=== PATIENT | female | born 1955 | race Caucasian/White ===

== ENCOUNTER 2017-07-27 06:52 | Day surgery (SDC) | payer OTHER, SELFPAY ==
[2017-07-27 07:11] VITALS: BP 146/91; PULSE 80; RESP 16; TEMP 36.3; O2SAT 100; BMI 39.5
--- NOTE | 2017-07-27 08:14 | COLBX_PTH ---
PATIENT: ETTA TRUJILLO LOC: EN U#:[id number] AGE/SX: 62/F ROOM: RE07/27/[address]: Dr. Celia Hercules MD : 1955 BED: DIS: 07/27/2017 SPEC #: [id number] RECD: 07/27/17 11:08 STATUS: KIRBY KUSUM #: [id number] CLAUDY: 07/27/17 08:[address]: Celia Hercules DEPT: SURGICAL PATHOLOGY RECD BY: Dominic Cooley ENTERED: 07/27/17 13:10 SP TYPE: COLON BX OTHR DR: ALFONSO Catherine Tissues: A - Ascending colon B - Transverse colon C - Descending colon D - Rectum, NOS Procedures: Surgery Specimen Level IV HEADER OPERATION: Colonoscopy PRE-OP DIAGNOSIS: Family history of colon cancer, screening TISSUE SUBMITTED: A - Polyp at proximal ascending colon, B - Polyp at transverse colon, C - Polyp at distal descending colon, D ? Rectal polyp MICROSCOPIC DIAGNOSIS A. Polyp at proximal ascending colon, biopsy: Fragments of tubular adenoma. B. Polyp at transverse colon, biopsy: Fragments of tubular adenoma. C. Polyp at distal descending colon, biopsy: Fragments of tubular adenoma. D. Rectal polyp, biopsy. Tubular adenoma. SJ:claudio 07/28/17 MICROSCOPIC DESCRIPTION Slides are reviewed. GROSS DESCRIPTION A - Received in fixative is one container labeled with the patient's name and designated polyp at ascending colon. The specimen consists of multiple irregular fragments of light sanz soft tissue that in aggregate measure 0.5 x 0.2 x 0.1 cm. The specimen is totally submitted in one cassette. B - Received in fixative is one container labeled with the patient's name and designated polyp at transverse colon. The specimen consists of two pieces of sanz-pink polyp measuring 0.5 x 0.6 x 0.3 cm. The entire specimen is submitted in one cassette. C - Received in fixative is one container labeled with the patient's name and designated polyp at distal descending colon. The specimen consists of three pieces of sanz-pink polyp measuring 0.4 x 0.4 x 0.2 cm. Also present in the container is a minute piece of sanz-pink soft tissue measuring 0.1 cm in greatest dimension. The entire specimen is submitted in one cassette. D - Received in fixative is one container labeled with the patient's name and designated rectal polyp. The specimen consists of a piece of sanz-pink polyp measuring 0.5 x 0.5 x 0.3 cm. The entire specimen is submitted in one cassette. / ELI:claudio 07/27/17 TC:1 CPT: 11682 x4
[2017-07-27 08:50] VITALS: BP 119/73; BP 146/91; PULSE 65; RESP 16; TEMP 36.4; O2SAT 100
[2017-07-27 08:55] VITALS: BP 103/77; BP 146/91; PULSE 68; RESP 16; O2SAT 100
[2017-07-27 09:00] VITALS: BP 112/78; BP 146/91; PULSE 62; RESP 16; O2SAT 98
[2017-07-27 09:05] VITALS: BP 115/72; BP 146/91; PULSE 62; RESP 16; TEMP 36.8; O2SAT 100
--- NOTE | 2017-07-27 11:06 | OP.PCM_ITS ---
Report of Operation Date of Procedure: 07/27/17 Pre-Operative Diagnosis: Screen for colon cancer, positive family history Brother diagnosed at age 58 Post-Operative Diagnosis: Proximal ascending polyp, transverse colon polyp, distal descending colon polyp, rectal polyp Surgery/Procedure Performed:: Colonoscopy with snare polypectomy Type of Anesthesia:: MAC Anesthesiologist: Arnaldo Robles Specimen's removed: 1. Proximal ascending colon polyp, 2. Transverse colon polyp, 3. Distal descending colon polyp, 4. Rectal polyp Estimated Blood Loss (mL): Minimal Description of Procedure: Procedure: Colonoscopy After reviewing the risks benefits, the patient was deemed in satisfactory condition to undergo procedure. After obtaining informed consent, the scope was passed under direct visualization. Throughout the procedure, the patient's blood pressure pulse and position saturations were monitored continuously anesthesia. The colonoscope was introduced through the anus and advanced to the cecum, identified by the appendiceal orifice, IC valve and transillumination. The colonoscopy was performed without difficulty. The patient tolerated procedure well. Quality of bowel prep was good. Findings: The perianal and digital rectal exam showed some whitish plaque patches from about 3:00-5:00 and 7:00-9:00 on her gluteal cheeks near her anus. Multiple colon polyps removed with the snare polypectomy, these were located in the transverse colon, distal descending colon, rectum these are all about 4-5 mm in size. The proximal ascending polyp was sessile and removed with cold forceps biopsies. Otherwise the colon (entire examined portion) appeared normal. Retroflexed view of the distal rectum and anal verge was normal and showed no anal or rectal abnormalities Impression: 1. Colon polyps in the proximal ascending, transverse, distal descending, rectum. Completely removed and retrieved. 2. Change to the perianal skin with a whitish plaque from 3:00-5:00 & 7:00-9: 00. 2. The distal rectal and anal verge were normal on retroflexed view. Recommendations: Await biopsies Will schedule appt for biopsy of the perianal skin--?lichen sclerosus Repeat colonoscopy in 2-3 years for screening purposes, depending on biopsies as well as the family history. ADDENDUM: repeat colonoscopy in 2 years, pathology of polyps were all tubular adenomas - Complications none
== END 2017-07-27 09:37 | disposition home or self-care (01) ==
LOC: EN 06:54 → AC 06:55
PROVIDERS: Family Provider Physician Assistant; PCP Physician Assistant; Visit Provider Surgery
PROC: 0DJD8ZZ Inspection of Lower Intestinal Tract, Via Natural or Artificial Opening Endoscopic (ICD-10-PCS; CPT 45378; principal; 2017-07-27 07:55)
DX: Z12.11 Encounter for screening for malignant neoplasm of colon (principal); D12.2 Benign neoplasm of ascending colon; D12.4 Benign neoplasm of descending colon; D12.3 Benign neoplasm of transverse colon; D12.8 Benign neoplasm of rectum; Z80.0 Family history of malignant neoplasm of digestive organs; I10 Essential (primary) hypertension; J45.909 Unspecified asthma, uncomplicated; Z86.718 Personal history of other venous thrombosis and embolism; F41.9 Anxiety disorder, unspecified; Z79.82 Long term (current) use of aspirin; Z79.899 Other long term (current) drug therapy; K21.9 Gastro-esophageal reflux disease without esophagitis; K59.09 Other constipation; E78.00 Pure hypercholesterolemia, unspecified
CPT/HCPCS: 45385; 88305; J7120

== ENCOUNTER → 2017-08-21 17:09 | Outpatient (CLI) | payer OTHER, SELFPAY ==
--- NOTE | 2017-08-21 09:55 | TISS_PTH ---
PATIENT: ETTA TRUJILLO LOC: [facility] U#:[id number] AGE/SX: 70/F ROOM: RE08/21/[address]: Dr. Celia Hercules MD : 1955 BED: DIS: SPEC #: [id number] RECD: 08/21/17 17:02 STATUS: KIRBY KUSUM #: [id number] CLAUDY: 08/21/17 09:[address]: Celia Hercules DEPT: SURGICAL PATHOLOGY RECD BY: Dominic Cooley ENTERED: 08/24/17 09:53 SP TYPE: Tissue Bx LON DR: ALFONSO Catherine Tissues: Perianal tissue Procedures: Surgery Specimen Level IV HEADER OPERATION: Punch biopsy, perianal area PRE-OP DIAGNOSIS: Perianal skin lesion TISSUE SUBMITTED: Perianal tissue MICROSCOPIC DIAGNOSIS Perianal tissue, punch biopsy: Consistent with lichen sclerosus. Chronic inflammation and hyperkeratosis. Negative for malignancy. SJ:claudio 4/17/18 MICROSCOPIC DESCRIPTION Slides are reviewed. GROSS DESCRIPTION Received in fixative is one container labeled with the patient's name and designated punch biopsy, perianal lesion. The specimen consists of two irregular fragments of light sanz-white soft tissue that in aggregate measure 1 x 0.5 x 0.1 cm. The specimen is totally submitted in one cassette. / AM:claudio 08/24/17 TC:5 CPT: 62196
== END ==
PROVIDERS: Family Provider Physician Assistant; PCP Physician Assistant; Visit Provider Surgery
DX: L98.9 Disorder of the skin and subcutaneous tissue, unspecified (principal)
CPT/HCPCS: 88305

== ENCOUNTER 2023-07-09 13:06 | Observation (INO) | payer OTHER, SELFPAY ==
[2023-07-09] VITALS (16 sets, daily range): BP systolic 100–166; BP diastolic 46–119; PULSE 66–92; RESP 14–98; TEMP 36–37.4; O2SAT 94–100; BMI 45.6
--- OUTSIDE RECORDS SUMMARY | 2023-07-09 07:16 | XMS RPT_ITS | CCD ---
Author Name Unknown Address [address] [place] [address] Organization [facility] Care Team Providers Care Worship Leader Name Role Phone Shannan Soler PA-C Unavailable Shannan Soler PA-C Unavailable Neurology Provider Unavailable Unavailable Physical Therapy Provider Unavailable Unavai nguyễn General Surgery Provider Unavailable Unavail able Aileen KEN, Anneliese Cunningham Unavailable Karie Sutton PA-C Unavailable Cal KEN, Chilango Ge Unavailable Cortes RESEARCH AND DEVELOPMENT CHEMIST, Lianne Cunningham Unavailable Unavailable Mu KEN, Benny Londono Unavailable PANEL WIRER-C, Glynn Vazquez Unavailable Rio KOTHARI, Christal Gill Unavailable Unavailable [place]augh RESEARCH AND DEVELOPMENT CHEMIST, Sarina K Unavailable Unavai lable Stephanie RESEARCH AND DEVELOPMENT CHEMIST, Anneliese Anderson Unavailable Unavailab dakota Cole RESEARCH AND DEVELOPMENT CHEMIST, Lesia Figueroa Unavailable Unavailab dakota Hood MA, Lidia Unavailable Unavailable Uptain CNM, Crystal K Unavailable Jerman RESEARCH AND DEVELOPMENT CHEMIST, Lidia Unavailable Unavailable Mary RESEARCH AND DEVELOPMENT CHEMIST, Tamie Unavailable Zaugg RESEARCH AND DEVELOPMENT CHEMIST, Marichuy Unavailable Unavailable Wengeredmond RESEARCH AND DEVELOPMENT CHEMIST, Kaylyn Unavailable Unavailabl e Adonis RESEARCH AND DEVELOPMENT CHEMIST, Gordy Unavailable Unavailable Cammie RESEARCH AND DEVELOPMENT CHEMIST, Tegan Unavailable Unavailable Kimmie KOTHARI, Ines Londono Unavailable Unavaila ble Morgan RESEARCH AND DEVELOPMENT CHEMIST, Nancy Unavailable Unavailable Unavailable Unavailable SHANNAN SOLER Referring Unavailable FRANC HERRERA MD Admitting Unavailable FRANC HERRERA MD Primary Care Unavailable FRANC HERRERA MD Attending Unavailable SHANNAN SOLER Consulting Unavailable PROVIDER, UNKNOWN Consulting Unavailable FRANC HERRERA MD Admitting Unavailable FRANC HERRERA MD Primary Care Unavailable FRANC HERRERA MD Attending Unavailable SHANNAN SOLER Consulting Unavailable PROVIDER, UNKNOWN Consulting Unavailable Allergies Allergy Classification Reported Allergen(s) Allergy Type Date of Onset Reaction(s) Facility (4 sources) Demerol *ANALGESICS - OPIOID* Nausea [facility]; [facility] (1 source) Meperidine Drug Allergy [facility] Repository Medications Current Medications Medication Drug Class(es) Dates Sig (Normalized) Sig (Original) [id number] 200 actuat albuterol 0.09 mg/actuat metered dose inhaler (4 sources) beta2-Adrenergic Agonist Start: 01-13-2023 take 2 puff(s) by inhalation every four hours as needed for cough Ventolin HFA 90 mcg/actuation aerosol inhaler ; 2 (two) puff every four hours, as needed for cough/wheeze for 0 days Quantity: 1 {Each} Refills: 5 Ordered: 13-Jan-2023 XAVIER Soler Start: 13-Jan-2023 Comments: Medication taken as needed. Completed/Discontinued Medications Medication Drug Class(es) Dates Sig (Normalized) Sig (Original) amoxicillin 875 mg / clavulanate 125 mg oral tablet (8 sources) Penicillin-class Antibacterial Start: 11-19-2022 End: 11-29-2022 amoxicillin 875 mg-potassium clavulanate 125 mg tablet ; 1 (one) Tablet two times daily for 10 days Quantity: 20 {Tablet} Refills: 0 Ordered: 19-Nov-2022 XAVIER Soler Start: 19-Nov-2022 End: 29-Nov-2022 Status: Inactive Problems Active Problems Problem Classification Problem Date Documented Date Episodic/Chronic Acute and unspecified renal failure (1 source) Acute kidney failure, unspecified; Translations: [Acute kidney failure, unspecified] Onset: 04-21-2023 Episodic Acute bronchitis (8 sources) Acute bronchitis 07-19-2015 Episodic Acute posthemorrhagic anemia (1 source) Acute posthemorrhagic anemia; Translations: [Acute posthemorrhagic anemia] Onset: 04-21-2023 Episodic Administrative/social admission (20 sources) Patient encounter status; Translations: [Dietary counseling and surveillance] 09-06-2015 Episodic Anxiety disorders (20 sources) Mixed anxiety and depressive disorder; Translations: [Other specified anxiety disorders] 03-25-2023 Chronic Asthma (20 sources) Exacerbation of asthma; Translations: [Unspecified asthma with (acute) exacerbation] Onset: 04-21-2023 03-25-2023 Chronic Past or Other Problems Problem Classification Problem Date Documented Da te Episodic/Chronic Unclassified (4 sources) Well adult female - The patient feels well with minor complaints (Sick last week-sinus, V/D. Pt recovering). The patient has a balanced diet. The patient exercises 3 - 4 times per week. The patient sleeps 8 hours per night. 03-25-2023 Unclassified (4 sources) Cold Symptoms - Symptoms include hoarseness, productive cough and wheezing. The onset was 2 week(s) ago. The symptoms occur constantly. The patient describes this as moderate in severity and worsening. Current treatment includes non-prescription cold medication (Mucinex) and allergy medications (Zyrtec, benadryl). The patient has been exposed to an individual with an upper respiratory infection ( with bronchitis). Note for Upper respiratory infection : Thought was improving until 2 nights ago.Not much facial pain today but has had intermittently - worse yesterday.Using albuterol inhaler. 11-19-2022 Unclassified (4 sources) Lichen Sclerosus - patient was seen in office on 02/12/21. Rash diagnosed as Lichen Sclerosus. Was started on Clobetasol Propionate 0.05%. Rash has been much better than it was, but still having burning/itching at times. 03-19-2021 Unclassified (4 sources) concern - States she has a skin condition they diagnosed when she had her hysterectomy. States its very itchy, raw red areas, white patches. Has been using A&D ointment. States hurts when she urinates from urine touching skin. Has been prescribed Triamcinolone in the past. Has had this outbreak for at least a month. States it has never been this bad in the past. 02-12-2021 Unclassified (4 sources) UTI - Symptoms include dysuria, urinary frequency, urinary urgency and abdominal pain. The pain is located in the suprapubic area. There is no radiation. The patient describes the pain as aching. Onset was gradual 2 day(s) ago. There is no known event that preceded symptom onset. The symptoms occur constantly. The patient describes this as moderate in severity and worsening. Note for UTI : Pt also has diarrhea.Had COVID over Stem. Has had some intermittent mid to right sided chest pain at rest since before having COVID. Mom with AR at age 60-70. No associated symptoms. Only lasts for a few minutes. 06-04-2020 Unclassified (4 sources) Well adult female - The patient feels well with no complaints, has good energy level and is sleeping well. The patient has a balanced diet and takes no supplemental vitamins & iron. The patient does not exercise. The patient sleeps 8 hours per night. Note for Well adult female : No concerns today. 02-08-2020 Unclassified (4 sources) lesion removal - Patient is here to have a lesion removed It is on her lower right arm. Is 4-5mm. States it itches. Not sure how long it has been there. 03-09-2019 Unclassified (4 sources) Well Adult, female - The patient feels well with minor complaints, has decreased energy level and is sleeping poorly (because CPAP needs to be replaced - needs script for supplies). The patient has a balanced diet and takes supplemental vitamins. The patient does not exercise. The patient sleeps 4 hours per night. 07-15-2018 Unclassified (4 sources) Well adult female - The patient feels well with minor complaints (started with cold sx again yesterday - this is a trigger for her asthma; started using symbicort again; using albuterol inhaler every 4 hours), has good energy level (depends on the day) and is sleeping well. The first day of the last menstrual period was : (age 39). The patient has a balanced diet and takes supplemental vitamins. The patient does not exercise. The patient sleeps 6 hours per night. Note for Well adult female : Feels she has battled anxiety since she was a young girl. Has trouble sleeping at times. No panic attacks but fearful to drive. Doing something out of her ordinary routine (like jury duty) causes panic. Winter months are worse; admits to some depression too. 04-23-2017 Unclassified (2 sources) Transition into care - The patient is transitioning into care from an emergency room (03/09/2017 [facility]) and a summary of care was reviewed. 03-23-2017 Unclassified (2 sources) [ADDITIONAL REASON] Cold Symptoms - Symptoms include nasal congestion, runny nose, ear pain, sore throat, productive cough, wheezing, fever, chills, general malaise and headache. The onset was gradual 4 day(s) ago. The symptoms occur constantly. The patient describes this as moderate in severity and unchanged. Current treatment includes non-prescription cold medication. The patient has been exposed to an individual with similar symptoms. Medical history includes seasonal allergies, asthma and tonsillectomy, but patient denies history of recurrent sinusitis, recurrent strep pharyngitis or recurrent ear infections. Note for Upper respiratory infection : Used albuterol inhaler every 2-3 hours yesterday. Isn't as bad today. Has advair at home (almost out) but did use it and noticed improvement. 03-23-2017 Unclassified (4 sources) Cold Symptoms - Symptoms include nasal congestion, runny nose, sore throat, productive cough (chest tight), wheezing, fever and headache, but do not include ear pain. The onset was gradual 5 day(s) ago. The symptoms occur constantly. The patient describes this as moderate in severity and worsening. Current treatment includes a short-acting beta agonist (every 4 hours), NSAIDs and salt water garlges. Medical history includes seasonal allergies, asthma and tonsillectomy, but patient denies history of recurrent sinusitis, recurrent strep pharyngitis or recurrent ear infections. Note for Upper respiratory infection : Head symptoms are better, now just in chest. 09-05-2016 Unclassified (4 sources) Tongue pain - Patient complains of a painful tongue x 5 days. Pain started off intermittently, but is now constant and worse. Patient describes pain as burning. She is unable to eat or drink very much due to symptoms. Patient has recently been on an antibiotic. Not diabetic. Afebrile, no sore throat. Does have dental bridges that she wears - painful to wear these. Has been gargling without improvement. 06-18-2016 Unclassified (4 sources) Cold Symptoms - Symptoms include sore throat (post nasal drainage), hoarseness, productive cough (worse during the night and in the mornings. Has slight tightness of her chest. ), wheezing, general malaise, headache (head pressure/congestion) and facial pain, but do not include nasal congestion, runny nose, ear pain (Has a twinge that goes up to her ears at times), fever or chills. The onset was sudden 5 day(s) ago. The symptoms occur constantly. The patient describes this as moderate in severity and unchanged. Current treatment includes a decongestant nasal spray, acetaminophen, home remedies and Benadryl. Risk factors do not include smoking. The patient has been exposed to an individual with an upper respiratory infection (granddaughter was sick about 1 week ago). Medical history includes seasonal allergies (this past spring did have), recurrent sinusitis, asthma and tonsillectomy, but patient denies history of recurrent strep pharyngitis or recurrent ear infections. Note for Upper respiratory infection : Reviewed by JARROD. 05-29-2016 Unclassified (4 sources) Cold Symptoms - Symptoms include nasal congestion, runny nose, ear pain, sore throat, hoarseness, productive cough, general malaise, headache and facial pain, but do not include chills. The onset was sudden 4 day(s) ago. The symptoms occur constantly. The patient describes this as moderate in severity and worsening. Current treatment includes rest and allergy medications. Risk factors do not include smoking. The patient has been exposed to an individual with similar symptoms ( being treated for sinus infection), but has not been exposed to secondhand smoke. Medical history includes seasonal allergies and asthma. Note for Upper respiratory infection : Pt seen for htn last month and hctz was added. Has not been checking bps at home. Tolerating med. 10-30-2015 Unclassified (4 sources) Cold Symptoms - Symptoms include nasal congestion, runny nose, ear pain (pressure), sore throat, productive cough (yellow), fever, chills, general malaise, headache and facial pain. The onset was gradual 2 day(s) ago. The symptoms occur constantly. The patient describes this as moderate in severity and unchanged. Current treatment includes non-prescription cold medication and NSAIDs (11:15 am). The patient has been exposed to an individual with similar symptoms ( - was in earlier in the week and given inhaler and z-yamile). Medical history includes asthma and tonsillectomy, but patient denies history of seasonal allergies, recurrent sinusitis, recurrent strep pharyngitis or recurrent ear infections. Note for Upper respiratory infection : Has been using symbicort only once a day for past month since was running out of samples. Has been needing to use ventolin inhaler less than every 4 hours. 07-19-2015 Unclassified (4 sources) Cold Symptoms - Symptoms include sneezing, nasal congestion, purulent discharge, sore throat, productive cough (started out as a dry cough, seems to be from drainage), fever (subjective), chills, general malaise (body aches), headache and facial pain, but do not include ear pain or wheezing. The onset was gradual 10 day(s) ago. The symptoms occur constantly. The patient describes this as moderate in severity and worsening. Current treatment includes allergy medications, NSAIDs and Benadryl (Salt water gargles, Vicks rub). Risk factors do not include smoking. The patient has been exposed to an individual with an upper respiratory infection. Medical history includes seasonal allergies and asthma (not currently flaring; not needing inhalers more than usual). 05-01-2015 Unclassified (4 sources) Well adult female - The patient feels well with minor complaints (is struggling with her asthma. has a croupy cough, shortness of breath, and wheezing), has decreased energy level (due to asthma keeping her awake and having to move 3 times in the last 4 months) and is sleeping poorly. The patient has an inappropriate diet (was eating out alot during the moving period). The patient does not exercise. The patient sleeps 5 (is interrupted) hours per night. Note for Well adult female : Patient would like to discuss left leg pain behind the knee. The pain is a soreness and a dull achy pain. Is having trouble walking on the left leg due to the soreness. Is unable to bend her leg at times. Feels that it might be swollen behind the knee. Started late September and has gotten progressively worse (worse if on feet a lot). No previous knee injury but has been more physically active with moving. Is also having soreness and itching of the vaginal area. Reports that it first occurred 4 years ago and then would resolved. Has tried changing soaps and detergents. Has used Vagisil. 03-09-2015 Unclassified (4 sources) Cold Symptoms - Symptoms include nasal congestion, purulent discharge, ear pain (since a cold she had at the holidays), ear fullness (intermittent trouble hearing), sore throat, productive cough, wheezing (slight), fever (subjective), chills, general malaise, headache and facial pain (bilateral). The onset was sudden 4 day(s) ago. The symptoms occur constantly. The patient describes this as moderate in severity and worsening. Current treatment includes non-prescription cold medication, nasal corticosteroids and a short-acting beta agonist. Risk factors do not include child in daycare or smoking. The patient has been exposed to an individual with similar symptoms ( with bronchitis). 06-28-2014 Unclassified (4 sources) follow up asthma - Patient seen 01/17/14 for asthma exacerbation and is here today to follow up to that. States has been a month and she had gotten better. Had been exercising more. She has been out of her steroid inhaler samples for 2 weeks and has seen a slight increase in wheezing and cough. Still has not had to use her rescue inhaler much.Advair worked well but made her hoarse and unable to sing. Thinks she tolerated the flovent (on previously) better altho may not have worked as well. 03-20-2014 Unclassified (4 sources) flare up of asthma - Patient states that over the last few days she has had wheezing, shortness of breath and a cough. She has an inhaler she uses, but it hasn't been helping. Has been so short of breath she can't even inhale enough to do the inhaler. No fever or other cold symptoms. reviewed by marian 11-12-2013 Unclassified (4 sources) Cold Symptoms - Symptoms include nasal congestion, runny nose, ear fullness, hoarseness, dry cough, wheezing, fever, general malaise, headache and facial pain. The onset was gradual month(s) ago. The symptoms occur constantly. The patient describes this as moderate in severity and worsening. Current treatment includes non-prescription cold medication. Risk factors do not include smoking. Medical history includes recurrent sinusitis and asthma. 07-11-2013 Unclassified (4 sources) Cough, SOB and Wheezing - Pt here today because she was in 02/04/13 for asthma. She was given oral steroid and Zithromax. She did improve but was still coughing and wheezing and called in office on 02/15/13 and Qvar prescribed but pt did not pick it up because it was too expensive. She was using her albuterol inhaler. Even though did not get Qvar symptoms did improve up until 02/25/13 and her cough, wheezing and SOB have returned and progressively worsening. Pulse ox today 98%. Cough in loose but nonproductive. No fever. reviewed by [facility] 03-07-2013 Unclassified (4 sources) Cold Symptoms - Symptoms include nasal congestion, runny nose, scratchy throat, dry cough, productive cough, wheezing, headache and facial pain, but do not include fever. The onset was sudden 1 week(s) ago. The symptoms occur constantly. The patient describes this as moderate in severity and worsening. The patient is not currently being treated for this problem. Medical history includes asthma. Note for Upper respiratory infection : Albuterol not working as well recently either. 02-04-2013 Unclassified (4 sources) New patient consultation - New patient consultation. Complains of occasional acid reflux. Also complains of numbness, pain and itching in both hands and feet for a few years and getting worse over the past couple of weeks. Would also like to have mole checked on left side checked. Asthma is usually well controlled with Ventolin. Has occasional wheezing this fall.Pt is on Ranitidine qd and this helps control it overall.Ventolin is used rarely, mostly with weather changes.Previuos physician did chek for diabetes which was negative , was dx w idiopathic neuropathy. in 2007 A1C was 5.9 and B 12 / folate both normal. 03-02-2012 Unclassified (2 sources) Cold Symptoms - Symptoms include nasal congestion, runny nose, ear pain, sore throat, productive cough, wheezing, fever, chills, general malaise and headache. The onset was gradual 4 day(s) ago. The symptoms occur constantly. The patient describes this as moderate in severity and unchanged. Current treatment includes non-prescription cold medication. The patient has been exposed to an individual with similar symptoms. Medical history includes seasonal allergies, asthma and tonsillectomy, but patient denies history of recurrent sinusitis, recurrent strep pharyngitis or recurrent ear infections. Note for Upper respiratory infection : Used albuterol inhaler every 2-3 hours yesterday. Isn't as bad today. Has advair at home (almost out) but did use it and noticed improvement. 03-23-2017 Unclassified (2 sources) [ADDITIONAL REASON] Transition into care - The patient is transitioning into care from an emergency room (03/09/2017 [facility]) and a summary of care was reviewed. 03-23-2017 Results Test Name Value Interpretation Reference Range Facil ity Vital Signs Date Time Vital Sign Value Performing Clinician Merline wagoner 03-25-2023 14:120500 Body weight 127.01 kg Shannan Martinez Soler PA- C Work Phone: [facility] 03-25-2023 14:120500 Diastolic blood pressure 77 mm[Hg] Shannan Michelle Soler PA-C Work Phone: [facility]; [facility] Encounters Encounter Date Encounter Type Care Provider Facility Start: 05-09-2023 End: 05-09-2023 Medication Shannan Soler PA-C Work Phone: [facility] Start: 04-21-2023 End: 05-09-2023 ambulatory FRANC KEN [facility] Start: 04-21-2023 End: 05-09-2023 Encounter for general adult medical examination without abnormal findings FRANC KEN [facility] Start: 04-17-2023 End: 04-21-2023 Evaluation and management of inpatient SHANNAN J SOLER [facility] Start: 03-25-2023 End: 03-25-2023 Patient encounter procedure Shannan Michelle Soler PA-C Work Phone: [facility] Start: 03-17-2023 End: 03-19-2023 Orders Shannan Anguianoer PA-C Work Phone: [facility] Start: 11-19-2022 End: 11-19-2022 Office outpatient visit 15 minutes Shannan Soler PA-C Work Phone: [facility] Start: 05-14-2022 End: 05-14-2022 Medication Shannan Soler PA-C Work Phone: [facility] Start: 05-07-2022 End: 05-07-2022 Orders Shannan Soler PA-C Work Phone: [facility] Start: 03-27-2022 End: 03-27-2022 Patient encounter procedure Shannan Soler PA-C Work Phone: [facility] Start: 03-17-2022 End: 03-17-2022 Office outpatient visit 15 minutes Shannan Soler PA-C Work Phone: [facility] Start: 02-20-2022 End: 02-20-2022 Orders Shannan Soler PA-C Work Phone: [facility] Start: 03-29-2021 End: 03-29-2021 Patient encounter procedure Shannan Soler PA-C Work Phone: [facility] Start: 03-19-2021 End: 03-20-2021 Orders Shannan Soler PA-C Work Phone: [facility] Start: 03-19-2021 End: 03-19-2021 Office outpatient visit 10 minutes Shannan Soler PA-C Work Phone: [facility] Start: 02-18-2021 End: 02-18-2021 Orders Shannan Soler PA-C Work Phone: [facility] Start: 02-12-2021 End: 02-12-2021 Office outpatient visit 15 minutes Shannan Soler PA-C Work Phone: [facility] Start: 06-04-2020 End: 06-04-2020 Patient encounter procedure Shannan Soler PA-C Work Phone: [facility] Start: 02-08-2020 End: 02-08-2020 Patient encounter procedure Shannan Soler PA-C Work Phone: [facility] Start: 02-01-2020 End: 02-02-2020 Orders Shannan Soler PA-C Work Phone: [facility] Start: 01-02-2020 End: 01-02-2020 Orders Shannan Soler PA-C Work Phone: [facility] Start: 03-17-2019 End: 03-18-2019 Nursing evaluation of patient and report Shannan Soler PA-C Work Phone: [facility]. Start: 03-09-2019 End: 03-09-2019 Patient encounter procedure Shannan Soler PA-C Work Phone: [facility] Start: 02-21-2019 End: 02-21-2019 Office outpatient visit 25 minutes Shannan Soler PA-C Work Phone: [facility] Start: 02-14-2019 End: 02-14-2019 Medication Shanann Soler PA-C Work Phone: [facility] Start: 01-20-2019 End: 01-19-2019 Historical Summary Shannan Anguianoer PA-C Work Phone: [facility] Start: 07-15-2018 End: 07-15-2018 Patient encounter procedure Shannan Soler PA-C Work Phone: [facility] Start: 07-15-2018 End: 07-15-2018 Periodic preventive med est patient 40-64yrs Shannan Soler PA-C Work Phone: [facility]. Start: 07-13-2018 End: 07-14-2018 Orders Shannan Soler PA-C Work Phone: [facility]. Start: 05-20-2018 End: 05-21-2018 Orders Shannan Soler PA-C Work Phone: [facility]. Start: 01-14-2018 End: 01-18-2018 Office outpatient visit 25 minutes Shannan Soler PA-C Work Phone: [facility] Start: 12-17-2017 End: 12-17-2017 Orders Shannan Soler PA-C Work Phone: [facility]. Start: 12-16-2017 End: 12-17-2017 Orders Shannan Soler PA-C Work Phone: [facility]. Start: 08-07-2017 End: 08-07-2017 Office outpatient visit 25 minutes Shannan Soler PA-C Work Phone: [facility]. Start: 07-29-2017 End: 07-29-2017 Historical Summary Shannan Soler PA-C Work Phone: [facility] Start: 05-20-2017 End: 05-20-2017 Nursing evaluation of patient and report Shannan Soler PA-C Work Phone: [facility]. Start: 04-23-2017 End: 04-23-2017 Patient encounter procedure Shannan Soler PA-C Work Phone: [employer] [employer] Start: 04-23-2017 End: 04-23-2017 Periodic preventive med est patient 40-64yrs Shannan Soler PA-C Work Phone: [employer]. Start: 04-22-2017 End: 04-22-2017 Historical Summary Shannan Soler PA-C Work Phone: [employer]. Start: 03-18-2017 End: 03-18-2017 Telephone follow-up Shannan Soler PA-C Work Phone: [employer]. Start: 03-18-2017 End: 03-23-2017 Office outpatient visit 15 minutes Shannan Soler PA-C Work Phone: [employer] Start: 11-06-2016 End: 11-06-2016 Orders Shannan Soler PA-C Work Phone: [employer]. Start: 09-04-2016 End: 09-05-2016 Office outpatient visit 15 minutes Shannan Soler PA-C Work Phone: [employer]. Start: 07-01-2016 End: 07-01-2016 Medication Shannan Soler PA-C Work Phone: [employer]. Start: 06-18-2016 End: 06-18-2016 Patient encounter procedure Shannan Soler PA-C Work Phone: [employer]. Start: 06-05-2016 End: 06-05-2016 Patient encounter procedure Shannan Soler PA-C Work Phone: [employer]. Start: 05-29-2016 End: 05-29-2016 Office outpatient visit 15 minutes Shannan Soler PA-C Work Phone: [employer] Start: 05-09-2016 End: 05-09-2016 Nursing evaluation of patient and report Shannan Soler PA-C Work Phone: [employer]. Start: 10-30-2015 End: 10-30-2015 Office outpatient visit 15 minutes Shannan Soler PA-C Work Phone: [employer]. Start: 09-06-2015 End: 09-06-2015 Office outpatient visit 25 minutes Shannan Soler PA-C Work Phone: [employer] Start: 07-19-2015 End: 07-19-2015 Patient encounter procedure Shannan Soler PA-C Work Phone: [employer]. Start: 05-01-2015 End: 05-01-2015 Office outpatient visit 15 minutes Shannan Soler PA-C Work Phone: [employer]. Start: 03-09-2015 End: 03-09-2015 Patient encounter procedure Sahnnan Soler PA-C Work Phone: [facility] [employer] Start: 03-09-2015 End: 03-09-2015 Periodic preventive med est patient 40-64yrs Shannan Soler PA-C Work Phone: [employer]. Start: 06-28-2014 End: 06-28-2014 Office outpatient visit 15 minutes Shannan Soler PA-C Work Phone: [employer]. Start: 03-20-2014 End: 03-20-2014 Office outpatient visit 15 minutes Shannan Soler PA-C Work Phone: [employer]. Start: 01-17-2014 End: 01-17-2014 Office outpatient visit 15 minutes Shannan Soler PA-C Work Phone: [employer]. Start: 11-12-2013 End: 11-12-2013 Office outpatient visit 25 minutes Shannan Soler PA-C Work Phone: [employer] Start: 07-11-2013 End: 07-11-2013 Patient encounter procedure Shannan Soler PA-C Work Phone: [employer] Start: 03-07-2013 End: 03-07-2013 Patient encounter procedure Shannan Soler PA-C Work Phone: [employer]. Start: 02-15-2013 End: 02-15-2013 Medication Shannan Osler PA-C Work Phone: [employer] Start: 02-04-2013 End: 02-04-2013 Patient encounter procedure Shannan Soler PA-C Work Phone: [employer] Start: 04-20-2012 End: 04-20-2012 Nursing evaluation of patient and report Shannan Soler PA-C Work Phone: [employer]. Start: 03-02-2012 End: 03-02-2012 Nursing evaluation of patient and report Shannan Soler PA-C Work Phone: [employer] Start: 03-02-2012 End: 03-02-2012 Patient encounter procedure Shannan Soler PA-C Work Phone: [employer] Patient encounter procedure [facility]annan J Sol[facility]-C [facility] Procedures Date Procedure Procedure Detail Performing Clinician Start: 03-25-2023 End: 03-25-2023 Adv care pln/ no alt dcsn mkr docd or refusal Shannan Soler PA-C Work Phone: Start: 03-25-2023 End: 03-25-2023 Depression screening Shannan Ha Work Phone: Start: 03-25-2023 End: 03-25-2023 Falls risk assessment documented Shannan Soler PA-C Work Phone: Start: 03-25-2023 End: 03-25-2023 Flu immunize order/admin Shannan saunders PA-C Work Phone: Start: 03-25-2023 End: 03-25-2023 Pt falls assess docd w/o fall/injury past year Shannan Soler PA-C Work Phone: Start: 03-25-2023 End: 03-25-2023 Scr dep neg, no plan reqd Shannan anne PA-C Work Phone: Start: 03-17-2023 End: 03-17-2023 Lab findings surveillance Gordy MALLOY Plan of Treatment Date Care Activity Detail Author Start: 05-20-2023 Patient encounter procedure Medical; EXTENDED RTN - d/c MLCC, fx femur/knee [facility] [employer] Start: 20-May-2023 14:10 XAVIER Soler Appointment Request [employer] Start: 03-25-2023 Dxa bone density martha dy 1/> sites axial skel Bone Density (97289) Start: 25-Mar-2023 Intent [employer]; [employer] Start: 03-25-2023 Oncology colorectal screening arash 10 dna markrs COLOGUARD COLON CANCER SCREENING USING STOOL DNA AT POINT OF CARE (45445) Start: 25-Mar-2023 Intent [employer] Start: 03-25-2023 Provider Instruction s for Treatment K[facility] HM Issues, 50-64 female Indication: Annual physical exam Start: 25-Mar-2023 Instruction Type: Provider Instructions for Treatment [employer] Start: 03-25-2023 Screening digital br east tomosynthesis bi Mammogram 3D (tomosynthesis), bilateral ([id number]) Start: 25-Mar-2023 Intent [employer] Start: 03-27-2022 Dxa bone density martha dy 1/> sites axial skel Bone Density Start: 27-Mar-2022 Intent [employer] Start: 03-27-2022 Provider Instruction s for Treatment K[facility] HM Issues, 50-64 female Indication: Annual physical exam Start: 27-Mar-2022 Instruction Type: Provider Instructions for Treatment [employer] Start: 03-27-2022 Screening digital br east tomosynthesis bi Mammogram 3D (tomosynthesis), bilateral ([id number]) Start: 27-Mar-2022 Intent [employer] Start: 03-27-2022 Cytp cerv/vag auto t hin layer prep mnl screen ThinPrep Pap Test with HPV reflex (88054) (51552) Start: 27-Mar-2022 13:24 Request [employer] Start: 02-20-2022 Screening digital br east tomosynthesis bi Mammogram 3D (tomosynthesis), bilateral ([id number]) Start: 20-Feb-2022 Intent [employer] Start: 03-29-2021 Dxa bone density martha dy 1/> sites axial skel Bone Density Start: 29-Mar-2021 Intent [employer] Start: 03-29-2021 Provider Instruction s for Treatment [facility] HM Issues, 50-64 female Indication: Annual physical exam Start: 29-Mar-2021 Instruction Type: Provider Instructions for Treatment [employer] Start: 03-29-2021 Screening digital br east tomosynthesis bi Mammogram 3D (tomosynthesis), bilateral ([id number]) Start: 29-Mar-2021 Intent [employer] Start: 02-18-2021 Screening mammograph y bi 2-view breast inc cad Mammogram Bilateral Screening Digital w/CAD (95428) with 3D (tomosynthesis), bilateral ([id number]) Start: 18-Feb-2021 Intent [employer] [employer] Start: 02-08-2020 Dxa bone density martha dy 1/> sites axial skel Bone Density Start: 08-Feb-2020 Intent Comments: Pt to schedule [employer] Immunizations Immunization Date Immunization Notes Care Provider Moy rutledge 03-25-2023 influenza, injectabl e, quadrivalent, preservative free Shannan Soler PA-C Work Phone: [employer] Payers Date Payer Category Payer Unknown [id number] 1955 Unknown [id number] Medicare [id number] Unknown [employer] Unknown [id number] Social History Date Type Detail Facility Caffeine Use Caffeine Use [employer]; [employer] Tobacco Use: Tobacco Use: ; Never smoker. [employer] Female [employer]; [employer] Work Phone: Never smoked tobacco [employer] Work Phone: Summary Purpose Family History bladder cancer Status:Active Comments:Brother . Breast Cancer Status:Active Comments:Mother. Cerebrovascular Accident Status:Active Comment s:Maternal Grandfather. Brother. Colon Cancer Status:Active Comments:Materna l Grandfather. Brother. Coronary Artery Disease Status:Active Comments :Mother. Brother. Diabetes Mellitus Type II Status:Active Commen ts:Maternal Grandfather. Brother. factor V leiden mutation Status:Active Comment s:Brother. one brother is a carrier; other brothers and neice are homozygous Hypertension Status:Active Comments:Mother. Maternal Grandfather. Maternal Grandmother. Osteoarthritis Status:Active Comments:Mother. bladder cancer Status:Active Comments:Brother . Breast Cancer Status:Active Comments:Mother. Cerebrovascular Accident Status:Active Comment s:Maternal Grandfather. Brother. Colon Cancer Status:Active Comments:Materna l Grandfather. Brother. Coronary Artery Disease Status:Active Comments :Mother. Brother. Diabetes Mellitus Type II Status:Active Commen ts:Maternal Grandfather. Brother. factor V leiden mutation Status:Active Comment s:Brother. one brother is a carrier; other brothers and neice are homozygous Hypertension Status:Active Comments:Mother. Maternal Grandfather. Maternal Grandmother. Osteoarthritis Status:Active Comments:Mother. bladder cancer Status:Active Comments:Brother . Breast Cancer Status:Active Comments:Mother. Cerebrovascular Accident Status:Active Comment s:Maternal Grandfather. Brother. Colon Cancer Status:Active Comments:Materna l Grandfather. Brother. Coronary Artery Disease Status:Active Comments :Mother. Brother. Diabetes Mellitus Type II Status:Active Commen ts:Maternal Grandfather. Brother. factor V leiden mutation Status:Active Comment s:Brother. one brother is a carrier; other brothers and neice are homozygous Hypertension Status:Active Comments:Mother. Maternal Grandfather. Maternal Grandmother. Osteoarthritis Status:Active Comments:Mother. bladder cancer Status:Active Comments:Brother . Breast Cancer Status:Active Comments:Mother. Cerebrovascular Accident Status:Active Comment s:Maternal Grandfather. Brother. Colon Cancer Status:Active Comments:Materna l Grandfather. Brother. Coronary Artery Disease Status:Active Comments :Mother. Brother. Diabetes Mellitus Type II Status:Active Commen ts:Maternal Grandfather. Brother. factor V leiden mutation Status:Active Comment s:Brother. one brother is a carrier; other brothers and neice are homozygous Hypertension Status:Active Comments:Mother. Maternal Grandfather. Maternal Grandmother. Osteoarthritis Status:Active Comments:Mother. Advance Directives No Advanced Directives Records FoundNo Advanced Directives Records FoundNo Advanced Directives Records Found Additional Source Comments INFORMATION SOURCE (unrecogn ized section and content) DATE CREATED AUTHOR AUTHOR'S ORGANIZ ATION 03/19/2023 [facility] DATE CREATED AUTHOR AUTHOR'S ORGANIZ ATION 05/16/2023 [facility] FOR RECORDS PERTAINING TO PATIENTS WHO ARE OR HAVE BEEN ENROLLED IN A CHEMICAL DEPENDENCY/SUBSTANCEABUSE PROGRAM, SOME INFORMATION MAY BE OMITTED. This clinical summary was aggregated from multiple sources. Caution should be exercised in using it in the provision of clinical care. This summary normalizes information from multiple sources, and as a consequence, information in this document may materially change the coding, format and clinical context of patient data. In addition, data may be omitted in some cases. CLINICAL DECISIONS SHOULD BE BASED ON THE PRIMARY CLINICAL RECORDS. [facility]. provides no warranty or guarantee of the accuracy or completeness of information in this document.
[2023-07-09] MEDS: Lactated Ringers 1,000 ML 15 ML IV (07:50)
[2023-07-09 08:04] LABS: Hematocrit 37.7 % (37-47); Hemoglobin 12.1 g/dL (12.0-15.0); Mean Corp Hgb Conc 32.1 g/dL (32-36); Mean Corpuscular Hgb 28.9 pg (27.0-32.0); Mean Corpuscular Volume 90.2 fL (81-99); Mean Platelet Vol. 9.4 fl (6.2-12.0); Platelet Count 233 K/mm3 (150-450); RBC Distribution Width CV 12.6 % (11.6-14.6); RBC Distribution Width SD 41.3 fl (35.1-43.9); Red Blood Count 4.18 M/mm3 (4.2-5.4); White Blood Count 6.8 K/mm3 (4.4-11.0)
[2023-07-09 08:17] LABS: Anion Gap 6 (5-15); BUN 24 mg/dL (7-18); BUN/Creat Ratio 17.1 RATIO (10-20); Chloride 110 mmol/L (98-107); EST Glomerular Filtration Rate 40 mL/min (>60); Est Glom Filt Rate - Afr Amer 48 mL/min (>60); Estimated Creatinine Clearance 54.18 ml/min; Glucose 94 mg/dL (74-106); Potassium 4.1 mmol/L (3.5-5.1); Sodium Level 140 mmol/L (136-145)
[2023-07-09] MEDS: Cefazolin 3 GM in 0.9% Normal Saline (100mL Bag) 100 ML IV (09:32)
--- NOTE | 2023-07-09 09:48 | RAD_ITS ---
STUDY: X-RAY - LEFT FEMUR REASON FOR STUDY: Female, 68 years old. ORIF DISTAL FEMUR WITH REMOVAL EXISTING HARDWARE TECHNIQUE: 7 intraoperative spot films of the left femur. COMPARISON: None. FINDINGS: There is an intramedullary celi through the length of the femur with proximal and distal interlocking screws. There is also a metallic reconstruction side plate along the lateral femur with fixation screws bridging a comminuted distal femur fracture. Normal remainder of the visualized femur. RAD/Femur Min 2 Views IMPRESSION: ORIF hardware fixating comminuted distal femur fracture. Electronically Signed: Danny Mcmillan MD at 15:42 EST ,
[2023-07-09] MEDS: Bupivacaine 0.25% 30 ML Vial (12:21)
[2023-07-09] MEDS: Bupiv/Epi 0.25% 30 ML Vial (12:21)
--- NOTE | 2023-07-09 13:06 | OP.PCM_ITS ---
Report of Operation Date of Procedure: 07/09/23 Description of Surgical Findings:: Preoperative diagnosis: 1. Symptomatic loose hardware left femur 2. Left intra-articular distal femur fracture Postoperative diagnosis: 1. Symptomatic loose hardware left femur 2. Left intra-articular distal femur fracture Procedure: 1. Removal of hardware left femur 2. Submuscular open reduction internal fixation left distal femur Surgeon: Wander Aaron DO secretary administrative assistant: Mary Medina PA-C Anesthesia: General endotracheal Anesthesiologist: Dr. Terrell Complications: None Drains: None Estimated blood loss: 250 cc Urinary output: Per anesthesia record IV fluids: 1700 cc crystalloid Specimens: None Surgical implants: [place] 4.5 mm distal femoral Axsos lateral locking plate, 12 hole with combination of cortical and locking screws Surgical indications: This is a 68-year-old female who underwent left femur retrograde nailing with myself at [facility] on 04/18/2023 for a left distal femur fracture.. She has recovered reasonably well and has returned to ambulation with a walker. Her pain is improving. She followed up routinely yesterday. X-rays revealed the most distal interlocking screw head backed out of the bone and was significantly prominent. This was palpable underneath the skin. Her skin did appear benign. Fracture appears to be healing on serial x- rays. Due to the concern of developing a wound, I did recommend urgent intervention in the form of removal of hardware. Due to concern of inadequate fixation due to the patient's body habitus, I did recommend we add additional fixation with a submuscular lateral locking plate. The risks, benefits, terms the procedure reviewed with patient at length and she agreed to proceed. Risks included but were not limited to bleeding, infection, loss of life or limb, need for additional surgery, persistent pain, nonhealing bone, failure of orthopedic hardware, knee stiffness, DVT or PE, neurovascular injury. Patient expressed understanding of these risks and wished proceed with surgery. Description of procedure: Prior to the procedure, patient was brought to the preoperative holding area where patient was identified by name, medical record number and date of . I confirmed the side, site, operation to be performed with the patient. All questions answered to the patient's satisfaction. She was also seen by anesthesia staff and anesthesia consent obtained. At time of the operative procedure, patient was brought to the operative suite. Patient was transferred to a standard operating table. General anesthesia was induced and LMA was placed. We secured the patient to the bed and protected all bony prominences. A large bump was placed in the patient's left hip and the left lower extremity was elevated on bath blankets. We prepped and draped the left lower extremity in normal, sterile orthopedic fashion. We performed a timeout confirming the side, site, and operation to be performed. No concerns are voiced and would like to proceed with surgery. 3 g Ancef was administered prior to the incision by the anesthesia staff. I first my attention distally. Previous lateral skin incision was utilized and opened with a 10 blade scalpel approximately 6 cm in length. Full-thickness skin flaps were developed down to the IT band. IT band was opened in line with prior incision with Bovie cautery. Loose screw was easily identified and removed. I then exposed the lateral upper condyle. I then used a Cleaning elevator to elevate the vastus lateralis from the femoral shaft. I was then able to pass a preselected 12 hole lateral locking plate in the submuscular plane. I used the targeting guide to make a proximal incision approximately 6 cm in length for proximal fixation. In similar fashion, full-thickness skin flaps were developed down the IT band. IT band was opened with Bovie cautery. I elevated the vastus lateralis from the lateral intermuscular septum with Bovie cautery. I then was able to place the plate slightly anterior to allow for screw trajectory given the intramedullary nail. We held the planned plate position in place with K wires. Appropriate positioning was confirmed on fluoroscopy. I compressed the plate to bone with cortical screws in both the proximal and distal portion of the plate. I was able to achieve a bicortical cortex screw in the most proximal hole of the plate. After plate positioning and compression on the bone was achieved, distal cluster was filled with 4 locking screws and 3 unicortical locking screws were placed in the proximal portion of the plate. Plate was placed in bridge fashion given the amount of comminution at the fracture site. Final fluoroscopic images were obtained. Wounds were copiously irrigated with Irrisept and normal saline. Hemostasis was excellent. I reapproximated the IT band in watertight fashion with a running, locking #1 Vicryl suture. Deeper fatty layers were reapproximated with [id number] 0 Vicryl suture. Dermis was reapproximated buried 2-0 Vicryl suture. Skin was finally reapproximated with interrupted horizontal mattress 2-0 nylon suture. Skin edges were anesthetized with 20 cc total quarter percent plain bupivacaine. Sterile silver Mepilex dressings were applied as well as a Jean-Claude wrap. Patient was awoken from anesthesia and extubated. She was transferred to her hospital and subsequent to PACU in stable condition. Need for skilled orthopaedic physician assistant: Mary Medina PA-C was critical to the outcome of the case. During the course of the procedure the physician orthopaedic physician assistant played a vital role. Her intimate knowledge of my steps in the procedure aided in safe and expedient completion of the procedure. The PA played a vital role in positioning particularly in obtaining the appropriate positioning. The PA was also vital in the retraction of soft tissues during the exposure and protecting vital structures. The PA was also vital and obtaining appropriate hardware placement and positioning. She also played a vital role in closure and dressing application with my direct supervision. Post Operative Plan: Patient will be placed in observation overnight for medical monitoring, early convalescence, IV antibiotics x 24 hours and early PT/OT. We will determine if patient is appropriate for outpatient PT versus home health care. Weightbearing: Weightbearing as tolerated left lower extremity Antibiotics: Ancef 1 g x 3 doses postoperatively, 1 dose given preoperatively. Plan for 14-day course of oral antibiotics upon discharge DVT Prophylaxis: Plan to start Lovenox 40 mg subcutaneous daily starting tomorrow Glover: None Dressing: Maintain Mepilex dressing and less saturated X-Rays: 2 weeks postoperatively in the office Follow-up: 2 weeks postoperatively in the office
[2023-07-09] MEDS: Lactated Ringers 1,000 ML 125 ML IV (15:33)
[2023-07-09] MEDS: Cefazolin 1 GM/50 ML BAG IV (16:53)
--- NOTE | 2023-07-09 21:06 | NURSING ---
answered call light. pt had just got up to the bathroom and noticed there was blood on the the floor. assisted pt to bed and assessed left upper leg drsg that was noted to be saturated at the proximal end of the drsg near the knee. removed drsg, a small area noted to be the source of a bloody ooze. cleaned area gently and reapplied a new drsg. ABD's placed on tap and ice bag placed to wound area and ronnie wrapped into place. left leg elevated on pillow and purewick put in place for tonight. vss at this time. will continue to monitor.
--- OUTSIDE RECORDS SUMMARY | 2023-07-09 22:09 | XMS RPT_ITS | CCD ---
Author Name Unknown Address [address] [place] [address] Organization [facility] Care Team Providers Care Property Preservation Specialist Name Role Phone Shannan Soler PA-C Unavailable Shannan Soler PA-C Unavailable Neurology Provider Unavailable Unavailable Physical Therapy Provider Unavailable Unavai nguyễn General Surgery Provider Unavailable Unavail able Aileen KEN, Anneliese Cunningham Unavailable Karie Sutton PA-C Unavailable Cal KEN, Chilango Ge Unavailable Cortes AREA LOSS PREVENTION MANAGER, Lianne Cunningham Unavailable Unavailable Mu KEN, Benny Londono Unavailable FLOOR MECHANIC-C, Glynn Vazquez Unavailable Rio KOTHARI, Christal Gill Unavailable Unavailable Mutersbaugh AREA LOSS PREVENTION MANAGER, Sarina K Unavailable Unavai lable Stephanie AREA LOSS PREVENTION MANAGER, Anneliese Anderson Unavailable Unavailab dakota Cole AREA LOSS PREVENTION MANAGER, Lesia Figueroa Unavailable Unavailab dakota Hood MA, Lidia Unavailable Unavailable Uptain CNM, Crystal K Unavailable Jerman AREA LOSS PREVENTION MANAGER, Lidia Unavailable Unavailable Mary AREA LOSS PREVENTION MANAGER, Tamie Unavailable Zaugg AREA LOSS PREVENTION MANAGER, Marichuy Unavailable Unavailable Wengeredmond AREA LOSS PREVENTION MANAGER, Kaylyn Unavailable Unavailabl e Adonis AREA LOSS PREVENTION MANAGER, Gordy Unavailable Unavailable Cammie AREA LOSS PREVENTION MANAGER, Tegan Unavailable Unavailable Kimmie KOTHARI, Ines Londono Unavailable Unavaila ble Morgan AREA LOSS PREVENTION MANAGER, Nancy Unavailable Unavailable Unavailable Unavailable SHANNAN SOLER [...] (4 sources) Demerol *ANALGESICS - OPIOID* Nausea [facility]; [facility] (1 source) Meperidine Drug Allergy [facility] Repository Medications Current Medications Medication Drug Class(es) Dates Sig (Normalized) Sig (Original) [id number] 200 actuat albuterol 0.09 mg/actuat metered dose [...] 04-21-2023 03-25-2023 Chronic Past or Other Problems Encounters Encounter Date Encounter Type Care Provider Facility Start: 05-09-2023 End: 05-09-2023 Medication Shannan Soler PA-C Work Phone: [facility] Start: 04-21-2023 End: 05-09-2023 ambulatory [facility] Start: 04-21-2023 End: 05-09-2023 Encounter for general adult medical examination without abnormal findings [facility] Start: 04-17-2023 End: 04-21-2023 Evaluation and management of inpatient SHANNANDARIN SOL[facility] Start: 03-25-2023 End: 03-25-2023 Patient encounter procedure Shannan Soler PA-C Work Phone: [facility] Start: 03-17-2023 End: 03-19-2023 Orders Shannan Anguianoer PA-C Work Phone: [facility] Start: 11-19-2022 End: 11-19-2022 Office outpatient visit 15 minutes Shannan Anguianoer PA-C Work Phone: [facility] Start: 05-14-2022 End: 05-14-2022 Medication Shannan Anguianoer PA-C Work Phone: [facility] Start: 05-07-2022 End: 05-07-2022 Orders Shannan Anguianoer PA-C Work Phone: [facility] Start: 03-27-2022 End: 03-27-2022 Patient encounter procedure Shannan Soler PA-C Work Phone: [facility] Start: 03-17-2022 End: 03-17-2022 Office outpatient visit 15 minutes Shannan Soler PA-C Work Phone: [facility] Start: 02-20-2022 End: 02-20-2022 Orders Shannan Soler PA-C Work Phone: [facility] Start: 03-29-2021 End: 03-29-2021 Patient encounter procedure Shannan Soler PA-C Work Phone: [facility] Start: 03-19-2021 End: 03-20-2021 Orders Shannan Soler PA-C Work Phone: [facility] Start: 03-19-2021 End: 03-19-2021 Office outpatient visit 10 minutes Shannan Soler PA-C Work Phone: [facility] Start: 02-18-2021 End: 02-18-2021 Orders Shannan Soler PA-C Work Phone: [facility] Start: 02-12-2021 End: 02-12-2021 Office outpatient visit 15 minutes Shannan Soler PA-C Work Phone: [facility] Start: 06-04-2020 End: 06-04-2020 Patient encounter procedure Shannan Soler PA-C Work Phone: [facility] Start: 02-08-2020 End: 02-08-2020 Patient encounter procedure Shannan Soler PA-C Work Phone: [facility] Start: 02-01-2020 End: 02-02-2020 Orders Shannan Soler PA-C Work Phone: [facility] Start: 01-02-2020 End: 01-02-2020 Orders Shannan Soler PA-C Work Phone: [facility] Start: 03-17-2019 End: 03-18-2019 Nursing evaluation of patient and report Shannan Soler PA-C Work Phone: [facility] Start: 03-09-2019 End: 03-09-2019 Patient encounter procedure Shannan Soler PA-C Work Phone: [facility] Start: 02-21-2019 End: 02-21-2019 Office outpatient visit 25 minutes Shannan Anguianoer PA-C Work Phone: [facility] Start: 02-14-2019 End: 02-14-2019 Medication Shannan Anguianoer PA-C Work Phone: [facility] Start: 01-20-2019 End: 01-19-2019 Historical Summary Shannan Soler PA-C Work Phone: [facility] Start: 07-15-2018 End: 07-15-2018 Patient encounter procedure Shannan Anguianoer PA-C Work Phone: [facility] Start: 07-15-2018 End: 07-15-2018 Periodic preventive med est patient 40-64yrs Shannan Anguianoer PA-C Work Phone: [facility] Start: 07-13-2018 End: 07-14-2018 Orders Shannan Anguianoer PA-C Work Phone: [facility] Start: 05-20-2018 End: 05-21-2018 Orders Shannan Anguianoer PA-C Work Phone: [facility] Start: 01-14-2018 End: 01-18-2018 Office outpatient visit 25 minutes Shannan Soler PA-C Work Phone: [facility] Start: 12-17-2017 End: 12-17-2017 Orders Shannan Soler PA-C Work Phone: [facility] Start: 12-16-2017 End: 12-17-2017 Orders Shannan Soler PA-C Work Phone: [facility] Start: 08-07-2017 End: 08-07-2017 Office outpatient visit 25 minutes Shannan Soler PA-C Work Phone: [facility] Start: 07-29-2017 End: 07-29-2017 Historical Summary Shannan Anguianoer PA-C Work Phone: [facility] Start: 05-20-2017 End: 05-20-2017 Nursing evaluation of patient and report Shannan Anguianoer PA-C Work Phone: [facility] Start: 04-23-2017 End: 04-23-2017 Patient encounter procedure Shannan Anguianoer PA-C Work Phone: [facility] Start: 04-23-2017 End: 04-23-2017 Periodic preventive med est patient 40-64yrs Shannan Anguianoer PA-C Work Phone: [facility] Start: 04-22-2017 End: 04-22-2017 Historical Summary Shannan Anguianoer PA-C Work Phone: [facility] Start: 03-18-2017 End: 03-18-2017 Telephone follow-up Shannan Anguianoer PA-C Work Phone: [facility] Start: 03-18-2017 End: 03-23-2017 Office outpatient visit 15 minutes Shannan Anguianoer PA-C Work Phone: [facility] Start: 11-06-2016 End: 11-06-2016 Orders Shannan Anguianoer PA-C Work Phone: [facility]. Start: 09-04-2016 End: 09-05-2016 Office outpatient visit 15 minutes Shannan Soler PA-C Work Phone: [facility] Start: 07-01-2016 End: 07-01-2016 Medication Shannan Anguianoer PA-C Work Phone: [facility] Start: 06-18-2016 End: 06-18-2016 Patient encounter procedure Shannan Soler PA-C Work Phone: [facility] Start: 06-05-2016 End: 06-05-2016 Patient encounter procedure Shannan Soler PA-C Work Phone: [facility]. Start: 05-29-2016 End: 05-29-2016 Office outpatient visit 15 minutes Shannan Soler PA-C Work Phone: [facility] Start: 05-09-2016 End: 05-09-2016 Nursing evaluation of patient and report Shannan Soler PA-C Work Phone: [facility] Start: 10-30-2015 End: 10-30-2015 Office outpatient visit 15 minutes Shannan Soler PA-C Work Phone: [facility] Start: 09-06-2015 End: 09-06-2015 Office outpatient visit 25 minutes Shannan Soler PA-C Work Phone: [facility] Start: 07-19-2015 End: 07-19-2015 Patient encounter procedure Shannan Soler PA-C Work Phone: [facility]. Start: 05-01-2015 End: 05-01-2015 Office outpatient visit 15 minutes Shannan Soler PA-C Work Phone: [facility] Start: 03-09-2015 End: 03-09-2015 Patient encounter procedure Shannan Soler PA-C Work Phone: [facility] Start: 03-09-2015 End: 03-09-2015 Periodic preventive med est patient 40-64yrs Shannan Soler PA-C Work Phone: [facility]. Start: 06-28-2014 End: 06-28-2014 Office outpatient visit 15 minutes Shannan Soler PA-C Work Phone: [facility] Start: 03-20-2014 End: 03-20-2014 Office outpatient visit 15 minutes Shannan Soler PA-C Work Phone: [facility] Start: 01-17-2014 End: 01-17-2014 Office outpatient visit 15 minutes Shannan Anguianoer PA-C Work Phone: [facility] Start: 11-12-2013 End: 11-12-2013 Office outpatient visit 25 minutes Shannan Soler PA-C Work Phone: [email or web address] Start: 07-11-2013 End: 07-11-2013 Patient encounter procedure Shannandarin Anguianoer PA-C Work Phone: [facility] Start: 03-07-2013 End: 03-07-2013 Patient encounter procedure Shannan Soler PA-C Work Phone: [facility] Start: 02-15-2013 End: 02-15-2013 Medication Shannan Anguianoer PA-C Work Phone: [facility] Start: 02-04-2013 End: 02-04-2013 Patient encounter procedure Shannandarin Anguianoer PA-C Work Phone: [facility] Start: 04-20-2012 End: 04-20-2012 Nursing evaluation of patient and report Shannan Soler PA-C Work Phone: [facility] Start: 03-02-2012 End: 03-02-2012 Nursing evaluation of patient and report Shannan Soler PA-C Work Phone: [facility] Start: 03-02-2012 End: 03-02-2012 Patient encounter procedure Shannan Soler PA-C Work Phone: [employer] Patient encounter procedure Shannan Martinez Soler PA-C Work Phone: [facility]; [facility] Procedures Date Procedure Procedure Detail Performing Clinician Start: 03-25-2023 End: 03-25-2023 Adv care pln/ no alt dcsn mkr docd or refusal Shannan Anguianoer PA-C Work Phone: Start: 03-25-2023 End: 03-25-2023 [...] EXTENDED RTN - d/c ML[facility], fx femur/knee [facility] Start: 20-May-2023 14:10 XAVIER Soler Appointment Request [facility] Start: 03-25-2023 Dxa bone density martha dy 1/> sites axial skel Bone Density (08826) Start: 25-Mar-2023 Intent [facility] [employer]. Start: 03-25-2023 Oncology colorectal screening arash 10 dna markrs COLOGUARD COLON CANCER SCREENING USING STOOL DNA AT POINT OF CARE (35728) Start: 25-Mar-2023 Intent [facility], [employer]. Start: 03-25-2023 Provider Instruction s for Treatment [facility] HM Issues, 50-64 female Indication: Annual physical exam Start: 25-Mar-2023 Instruction Type: Provider Instructions for Treatment [facility] Start: 03-25-2023 Screening digital br east tomosynthesis bi Mammogram 3D (tomosynthesis), bilateral ([id number]) Start: 25-Mar-2023 Intent [facility] Start: 03-27-2022 Dxa bone density martha dy 1/> sites axial skel Bone Density Start: 27-Mar-2022 Intent [facility], [employer]. Start: 03-27-2022 Provider Instruction s for Treatment KD HM Issues, 50-64 female Indication: Annual physical exam Start: 27-Mar-2022 Instruction Type: Provider Instructions for Treatment [facility] Start: 03-27-2022 Screening digital br east tomosynthesis bi Mammogram 3D (tomosynthesis), bilateral (10226) Start: 27-Mar-2022 Intent [facility] Start: 03-27-2022 Cytp cerv/vag auto t hin layer prep mnl screen ThinPrep Pap Test with HPV reflex (18473) (06546) Start: 27-Mar-2022 13:24 Request [facility] Start: 02-20-2022 Screening digital br east tomosynthesis bi Mammogram 3D (tomosynthesis), bilateral (09750) Start: 20-Feb-2022 Intent [facility] Start: 03-29-2021 Dxa bone density martha dy 1/> sites axial skel Bone Density Start: 29-Mar-2021 Intent [facility] [employer] Start: 03-29-2021 Provider Instruction s for Treatment KDH HM Issues, 50-64 female Indication: Annual physical exam Start: 29-Mar-2021 Instruction Type: Provider Instructions for Treatment [facility], [employer]. Start: 03-29-2021 Screening digital br east tomosynthesis bi Mammogram 3D (tomosynthesis), bilateral (88459) Start: 29-Mar-2021 Intent [facility] Start: 02-18-2021 Screening mammograph y bi 2-view breast inc cad Mammogram Bilateral Screening Digital w/CAD (14985) with 3D (tomosynthesis), bilateral (39914) Start: 18-Feb-2021 Intent [facility] Start: 02-08-2020 Dxa bone density martha dy 1/> sites axial skel Bone Density Start: 08-Feb-2020 Intent Comments: Pt to schedule [facility] Immunizations Immunization Date Immunization Notes Care Provider Moy rutledge 03-25-2023 influenza, injectabl e, quadrivalent, preservative free Shannan Soler PA-C Work Phone: [facility] Payers Date Payer Category Payer Unknown [id number] 1955 Unknown [id number] Medicare [id number] Unknown [employer] Unknown [id number] Social History Date Type Detail Facility Caffeine Use Caffeine Use [facility] Tobacco Use: Tobacco Use: ; Never smoker. [facility] Female [facility] Work Phone: Never smoked tobacco [facility]; [facility] Work Phone: Summary Purpose Family History bladder [...] DATE CREATED AUTHOR AUTHOR'S ORGANIZ ATION 05/16/2023 [place] FOR RECORDS PERTAINING TO PATIENTS WHO ARE [...] BE BASED ON THE PRIMARY CLINICAL RECORDS. [facility]. provides no warranty or guarantee of the accuracy or completeness of information in this document.
[2023-07-09] MEDS: Gabapentin 300 MG Capsule PO (22:44)
[2023-07-09] MEDS: Atorvastatin Calcium 20 MG Tablet PO (22:44)
[2023-07-09] MEDS: Oxycodone/Apap 5/325 Tablet PO (22:48)
[2023-07-10] VITALS: RESP 15
[2023-07-10] MEDS: Cefazolin 1 GM/50 ML BAG IV (00:56)
[2023-07-10] MEDS: Lactated Ringers 1,000 ML 125 ML IV (00:56)
[2023-07-10 03:27] VITALS: BP 132/81; PULSE 67; RESP 15; TEMP 36.7; O2SAT 99
[2023-07-10] MEDS: Oxycodone/Apap 5/325 Tablet PO (06:45)
[2023-07-10 07:00] LABS: Absolute Lymphocyte Count 1.18 X10^3/uL (0.83-4.51); Absolute Neutrophil Count 8.5 X10^3/uL (2.0-7.7); Eosinophil# 0.01 X10^3/uL; Eosinophils% 0.1 % (0-5); Hematocrit 29.9 % (37-47); Hemoglobin 9.9 g/dL (12.0-15.0); Lymphocyte # 1.18 X10^3/ul (0.83-4.51); Lymphocyte % 11.3 % (19-41); Mean Corp Hgb Conc 33.1 g/dL (32-36); Mean Corpuscular Hgb 29.2 pg (27.0-32.0); Mean Corpuscular Volume 88.2 fL (81-99); Mean Platelet Vol. 9.7 fl (6.2-12.0); Monocyte# 0.64 X10^3/uL; Monocyte% 6.1 % (0-10); NRBC Flagged by Analyzer 0 % (0-5); Neutrophil # 8.53 X10^3/uL (2.7-7.7); Platelet Count 268 K/mm3 (150-450); RBC Distribution Width CV 12.7 % (11.6-14.6); RBC Distribution Width SD 40.7 fl (35.1-43.9); Red Blood Count 3.39 M/mm3 (4.2-5.4); White Blood Count 10.4 K/mm3 (4.4-11.0)
[2023-07-10 07:39] LABS: Anion Gap 4 (5-15); BUN 21 mg/dL (7-18); BUN/Creat Ratio 19.6 RATIO (10-20); Calcium,Total 8.8 mg/dL (8.5-10.1); Chloride 107 mmol/L (98-107); Creatinine, Serum 1.07 mg/dL (0.55-1.02); EST Glomerular Filtration Rate 55 mL/min (>60); Est Glom Filt Rate - Afr Amer 66 mL/min (>60); Estimated Creatinine Clearance 70.88 ml/min; Glucose 128 mg/dL (74-106); Potassium 4.7 mmol/L (3.5-5.1); Sodium Level 136 mmol/L (136-145)
[2023-07-10 09:00] VITALS: BP 128/71; PULSE 69; RESP 16; TEMP 36.8; O2SAT 99
--- NOTE | 2023-07-10 10:44 | PN.ORTHO_ITS ---
Subjective Subjective Patient sitting at bedside with her in the room with her. Patient states her pain has been very well-managed. Patient reports she did have oozing blood from her leg when she stood up last night. Nursing reports today that the dressing has been dry with no active bleeding. Patient is feeling well is ready for discharge home. Patient would like to do outpatient therapy in [place]. Patient denies chest pain, shortness of breath, calf pain, nausea vomiting. Objective Data Objective Data Vital Signs: Vital Signs Temp Pulse Resp BP Pulse Ox O2 Del Method O2 Flow Rate 98.1 F 67 15 132/81 H 99 Nasal Cannula 3 07/10/23 03:27 07/10/23 03:27 07/10/23 03:27 07/10/23 03:27 07/10/23 03:27 07/10/23 04:49 07/10/23 09:19 Oxygen Flow Rate (L/min) 3 Oxygen Delivery Method Nasal Cannula Weight: 128.1 kg Body Mass Index (BMI) 45.6 Intake & Output: Intake and Output for Last 24 Hours 07/08/23 07/09/23 07/10/23 23:59 23:59 23:59 Intake Total 1809.50 / 1809.50 1881.25 / 1881.25 Output Total 400 / 400 Balance 1809.50 / 1409.50 1481.25 / 1481.25 Lab / Micro Data 07/10/23 06:34 07/10/23 06:34 Labs: Laboratory Results - last 24 hr 07/10/23 06:34: WBC 10.4, RBC 3.39 L, Hgb 9.9 L, Hct 29.9 L, MCV 88.2, MCH 29.2, MCHC 33.1, RDW Std Deviation 40.7, RDW Coeff of Khaadr 12.7, Plt Count 268, MPV 9.7, Immature Gran % (Auto) 0.500, Neut % (Auto) 82.0 H, Lymph % (Auto) 11.3 L, Tift % (Auto) 6.1, Eos % (Auto) 0.1, Baso % (Auto) 0.0, Absolute Neuts (auto) 8.5 H, Absolute Lymphs (auto) 1.18, Nucleated RBC % 0, Sodium 136, Potassium 4.7, Chloride 107, Carbon Dioxide 25.0, Anion Gap 4 L, BUN 21 H, Creatinine 1.07 H, Estim Creat Clear Calc 70.88, Est GFR (MDRD) Af Amer 66, Est GFR (MDRD) Non- Af 55 L, BUN/Creatinine Ratio 19.6, Glucose 128 H, Calcium 8.8 Radiography Diagnostic Testing: Radiology Impression Femur X-Ray 07/09/23 09:48 IMPRESSION: ORIF hardware fixating comminuted distal femur fracture. Electronically Signed: Danny Mcmillan MD at 15:42 EST , Physical Exam Narrative Exam, I found the patient sitting comfortably in a chair at bedside. in the room with her. Cranial nerves II through XII gross intact. Patient was in no respiratory distress speaking in full sentences. Patient had full range of motion of the upper extremities with good muscle tone and strength. Patient had no calf tenderness. The femoral region was wrapped in an Jean-Claude wrap. I did not take the dressing down today which had just been replaced by nursing this morning. Per nursing report there is been no active bleeding. Patient has a strong posterior tibial dorsalis pedis pulse. Const alert and oriented x3 General Appearance: cooperative HEENT normocephalic Head and Scalp: atraumatic Eyes PERRL Neck supple Lymph Lymphatic: no lymphadenopathy noted Resp normal respiratory effort Effort and Inspection: able to speak in complete sentences Cardio regular rate Extremity normal capillary refill Skin no rashes or lesions noted Neuro CN's II-XII intact bilaterally Motor Exam: strength 5/5 throughout Psych mental status grossly normal and affect normal Assessment & Plan Assessment/Plan (1) Fracture, femur closed, shaft: QUALIFIERS: Encounter type: subsequent encounter Fracture morphology: other fracture Laterality: unspecified laterality Fracture healing: with delayed healing Qualified Code(s): S72.399G - Other fracture of shaft of unspecified femur, subsequent encounter for closed fracture with delayed healing PLAN: Patient is status post ORIF femur fracture 1. Continue all pain medications as prescribed 2. Patient will begin Xarelto 10 mg 1 p.o. daily for 30 days for postop DVT prophylaxis 3. Encourage incentive spirometry 4. Patient has a follow-up with Dr. Spittle in 12 days. Patient to call office to schedule 5. Patient will do outpatient therapy in [place]. This will be set up by case management prior to discharge 6. Patient can weight-bear as tolerated with walker 7. We will change dressings prior to discharge with new silver Mepilex dressings 8. Patient can shower in 3 days. Remove the Jean-Claude wrap the Mepilex will remain intact for shower.
--- NOTE | 2023-07-10 10:50 | CASEMGMT ---
Addendum entered by Soila Darden 07/10/23 13:52: 1245-Received tc from [facility] at [facility] who states pt lovenox cost is $99.40. TAYE OLIVER into pt room, pt is agreeable to cost. Pt denies further needs. Addendum entered by Soila Darden 07/10/23 11:57: TAYE OLIVER into pt room, she is aware of the therapy that was set up for appt time and date. She is also aware of the cost of the medication and states she cannot afford. Pt has used lovenox in the past and denies any issues with this. Addendum entered by Soila Darden 07/10/23 11:50: Received tc from marina Bazzi needs PA. Used cover my meds for PA, approved. TC to pharmacy, cost is $554. Savings card cannot be used d/t dose of 10mg. Updated PA who will write for lovenox. Original Note: TAYE OLIVER Assessment: Face to Face with pt for initial transition planning/care coordination assessment. TAYE OLIVER introduced self and role at [facility], pt voices understanding and consents to assessment. Pt is A&O x4 and answers all questions appropriately at this time. Pt sitting up in chair with oxygen on. Pt at bedside. Care providers, pharmacy, and demographics verified/updated. Admitting Dx: L femur fx PCP:ALFONSO Catherine Specialists:shanice Aaron Pharmacy: [facility] Retail Insurance: MMO Prescription Benefit: yes LNOK: Fermin Lauren, Living Arrangements: Pt lives with in a ground level apt with 1 step to enter. Pt reports she needs assistance with lower body dressing and bathing, pt assists. Pt denies concerns at home. Transportation: Pt has not driven in a couple of years. Pt provides transportation. DME:shower chair- doesn't fit; CPAP, FWW, grab bars in shower, straight cane, walking stick HHC/SNF: Pt was being seen by [facility] but they were to dc as [facility]. Pt has been to [facility] in the past. Pt states no concerns with going home at time of dc. Provided pt with a local in network list of oupt therapy options, pt chose [facility]. Pt states they prefer an appt at 3:30p or after. Pt states no further concerns/needs. CM to follow. Advised pt to ask CM if any further question/concerns/needs arise, voices understanding. Pt Goal:Home with outpt therapy Plan: Home with outpt therapy, set up TC to [facility], spoke with Bryce, appt made for 07/15/23 at 4pm and placed on dc instructions. Updated PA on plan. Faxed H&P, dc instructions and order to [facility]. Mary Jane KOTHARI CM
--- NOTE | 2023-07-10 11:00 | PCM.DC ---
Discharge Instructions Diet Discharge Diet: No restrictions Activity Discharge Activity: May Not Drive and May Shower May shower in (days): 3 May resume sexual activity in: No Restrictions Ice area for (Minutes): 30 Weight Bearing Status: Weight bearing as tolerated Dressing / Incision Call your doctor if your incision/area has: Continuous Slow Oozing, Sudden Increased Bleeding, Increased Pain/ Swelling, Increased Redness, Foul Smelling Discharge and Swelling at the incision site Call your doctor if you observe: Fever of 101 or Higher and Shortness of breath Suture Line Care: Avoid Pulling/Pushing Change Dressing in: leave in place till F/U Remove Dressing in: leave in place till F/U Follow Up Care Please Follow Up With: Wander Aaron DO When: 12 days call office for an appointment [phone] Test Results: Test results from this visit will be discussed in further detail at your follow-up appointment, if applicable. Discharge Plan Admission Admit Date/Time: 07/09/23 13:06 Primary Reason for Your Visit: Removal of hardware of femur fracture Attending Provider: Wander Aaron Primary Care Provider: Fannie Soler Discharge Orders/Prescriptions Prescriptions: New doxycycline monohydrate 100 mg Capsule 100 mg PO BID 14 Days Qty: 28 0RF oxycodone-acetaminophen 5-325 mg Tablet 1 - 2 tab PO Q6H PRN PRN (Reason: Pain Score 4-10) 7 Days Qty: 56 0RF Xarelto 10 mg tablet 10 mg PO DAILY 30 Days Qty: 30 0RF Continued gabapentin 300 mg capsule 300 mg PO QHS fluoxetine 20 mg capsule 20 mg PO QDAY diphenhydramine HCl [Banophen] 25 MG capsule 25 mg PO QHS albuterol sulfate [Ventolin HFA] 1 INHALER inhaler 1 - 2 puff inhalation Q4H PRN PRN (Reason: Sob &/Or Wheezing) atorvastatin 20 mg tablet 20 mg PO DAILY Patient Comments: TAKE 1 TABLET BY MOUTH EVERY DAY AT BEDTIME famotidine [Pepcid AC] 20 mg tablet 20 mg PO DAILY PRN (Reason: acid reflux) Discontinued aspirin 325 mg tablet 325 mg PO DAILY Referrals / Follow Up: Fannie Soler PA [Primary Care Provider] - Disposition Disposition (needs filled in before D/C Order can be placed): Home, Self Care
[2023-07-10] MEDS: FLUoxetine 20 MG Capsule PO (12:15)
[2023-07-10] MEDS: Doxycycline 100 MG CAPSULE PO (13:08)
[2023-07-10] MEDS: Acetaminophen 500 MG Tablet 1000 MG PO (13:11)
--- NOTE | 2023-07-10 14:48 | PHA.DC_ITS ---
Pharmacy [facility] Pharm[facility] Service has performed discharge medication reconciliation and counseling for this patient. The patient's discharge medication list was reviewed for discrepancies and discrepancies were resolved. The patient was counseled on the following discharge medications and changes in medications for homegoing were reviewed. 1. XARELTO --> CHANGED TO LOVENOX, RE-COUNSELLED ON THIS 2. PERCOCET --> CHANGED TO OXYCODONE, RE-COUNSELLED ON THIS 3. DOXYCYCLINE 4. HOLD HOME ASPIRIN 5. TYLENOL The Reason for Use, instructions for use, and potential side effects were reviewed for all new medications. The patient's questions regarding all of their medications were answered. The patient was able to verbally demonstrate an understanding of their discharge medications. Medications at Discharge Home Medications fluoxetine 20 mg capsule 20 mg PO QDAY 07/09/17 gabapentin 300 mg capsule 300 mg PO QHS 07/09/17 albuterol sulfate 90 mcg/actuation aerosol inhaler (Ventolin HFA) 1 - 2 puff inhalation Q4H PRN PRN Sob &/Or Wheezing 07/23/17 diphenhydramine HCl 25 mg capsule (Banophen) 25 mg PO QHS 07/23/17 atorvastatin 20 mg tablet 20 mg PO DAILY 07/09/23 famotidine 20 mg tablet (Pepcid AC) 20 mg PO DAILY PRN acid reflux 07/09/23 doxycycline monohydrate 100 mg capsule 100 mg PO BID 14 days #28 caps 07/10/23 oxycodone-acetaminophen 5 mg-325 mg tablet 1 - 2 tab PO Q6H PRN PRN Pain Score 4-10 7 days #56 tabs 07/10/23 rivaroxaban 10 mg tablet (Xarelto) 10 mg PO DAILY Postop DVT prophylaxis 30 days #30 tabs 07/10/23
== END 2023-07-10 15:41 | disposition home or self-care (01) ==
LOC: SDC 14:52 → MS3 14:52
PROVIDERS: Admitting Provider Student in an Organized Health Care Education/Training Program; PCP Physician Assistant; Referring Provider Student in an Organized Health Care Education/Training Program; Visit Provider Student in an Organized Health Care Education/Training Program
PROC: (CPT 27514; principal; 2023-07-09 08:50)
DX: T84.84XA Pain due to internal orthopedic prosthetic devices, implants and grafts, initial encounter (principal); S72.402A Unspecified fracture of lower end of left femur, initial encounter for closed fracture; E66.01 Morbid (severe) obesity due to excess calories; Z68.42 Body mass index [BMI] 45.0-49.9, adult; Y79.2 Prosthetic and other implants, materials and accessory orthopedic devices associated with adverse incidents; J45.909 Unspecified asthma, uncomplicated; K21.9 Gastro-esophageal reflux disease without esophagitis; I10 Essential (primary) hypertension; E78.00 Pure hypercholesterolemia, unspecified; Z79.899 Other long term (current) drug therapy; Z79.82 Long term (current) use of aspirin; Z86.718 Personal history of other venous thrombosis and embolism
CPT/HCPCS: 20680; 01360; 27514; 36415; 73552; 76000; 80048; 85025; 85027; 86850; 86900; 86901; 94668; 96361; 96365; 96366; 97116; 97162; 97166; 97530; 99221; C1713; J7120; G0378; J2405